=== PATIENT | male | born 1995 | race Caucasian/White ===

== ENCOUNTER 2016-08-09 09:36 | Inpatient (IN) | payer OTHER ==
--- NOTE | ~2016-08-09 | US140 ---
[facility]. [facility] A Service of [facility] RADIOLOGY TEXT RESULTS PATIENT: DMITRI FALLON LOCATION: SEDOF : 95 UNIT #: [id number] AGE: [address]: ULISES BAUTISTA MD SEX: M ORDER DR: [id number] [place] [id number] I MR#: [id number] Acc #: [id number] NAME: DMITRI FALLON. : 1995 SEX: M STUDY DATE/TIME: 08/09/2016 10:28 UNIT: SEDOF ROOM: [facility] STUDY DESCRIPTION: US UE Veins Unilat or Ltd Stdy Attending Physician: Ulises Bautista M.D. Ordering Physician: Drew Caba M.D. Primary Care Physician: [facility], MEDICAL IMAGING REPORT This report is preliminary unless electronic signature is present. EXAM Left upper extremity duplex venous ultrasound INDICATIONS 21-year-old male with severe left arm swelling, warmth and redness for 1 week in the region of the left elbow. The patient has a history of IV drug abuse. TECHNIQUE Tobias-scale, color Doppler and spectral Doppler waveform imaging of the deep venous structures in the left upper extremity was performed. No comparisons. FINDINGS The study demonstrates no evidence of DVT. There is no evidence of deep venous thrombosis. There is thrombus noted within the basilic vein in the distal upper arm most suggestive of superficial thrombophlebitis. Additionally, the line supply notes a fluid collection in the left lateral elbow region and posterior elbow region. This fluid is anechoic. There is a echogenic collection in the medial left elbow. It measures about 7 x 3 cm. This collection is indeterminate. It may represent abscess, given the clinical history, or possibly a hematoma. Correlate clinically. IMPRESSION 1. The study is negative for deep venous thrombosis. 2. There is superficial venous thrombosis involving the basilic vein in the distal upper arm most consistent with superficial thrombophlebitis. 3. There is a echogenic collection in the medial left elbow region measuring 7 x 3 cm. This may be abscess, given the patient's history, or possibly hematoma. Correlate clinically. 4. There is some anechoic fluid in the posterior medial elbow region. STS. [facility] A Service of [facility] RADIOLOGY TEXT RESULTS PATIENT: DMITRI FALLON LOCATION: SEDOF [id number] : [birth year] UNIT #: [id number] AGE: [address]: ULISES BAUTISTA MD SEX: M ORDER DR: Dictated by... Ton Samuel M.D. THIS IS AN ELECTRONICALLY VERIFIED REPORT Ton Samuel M.D. at 08/10/2016 7:41 AM BLANQUITA/arnol TD: 08/09/2016 17:25 JOB #: [id number] MEDICAL IMAGING REPORT
--- NOTE | ~2016-08-09 | CR93 ---
[facility] A Service of [facility] RADIOLOGY TEXT RESULTS PATIENT: DMITRI FALLON LOCATION: SEDOF [id number] : [birth year] UNIT #: [id number] AGE: [address]: ULISES BAUTISTA MD SEX: M ORDER DR: [id number] [place] [id number] MR#: [id number] Acc #: [id number] NAME: DMITRI FALLON. : 1995 SEX: M STUDY DATE/TIME: 08/09/2016 11:43 UNIT: SEDOF ROOM: [facility] STUDY DESCRIPTION: CR Elbow Min 3 Views Lt Attending Physician: Ulises Bautista M.D. Ordering Physician: Drew Cbaa M.D. [facility] REPORT This report is preliminary unless electronic signature is present. EXAM Left elbow, 08/09/2016 INDICATIONS 21-year-old male with swelling and pain from the elbow to the hand for a week. Drug use, possible retained needle. TECHNIQUE 3 views of the left elbow. No comparisons. FINDINGS No acute fracture, no retained opaque foreign body. There is nonspecific, diffuse soft tissue swelling. This may reflect generalized edema or cellulitis. No distinct subcutaneous air or periosteal reaction identified. IMPRESSION 1. No retained opaque foreign body or acute fracture. Nonspecific soft tissue swelling, which may reflect cellulitis. Dictated by... Asim Hare M.D. THIS IS AN ELECTRONICALLY VERIFIED REPORT Asim Hare M.D. at 08/10/2016 7:29 AM BRENT/arnol TD: 08/09/2016 18:09 JOB #: [id number] MEDICAL IMAGING REPORT
[~2016-08-09 09:36] MED LIST: LEVEMIR100 UNITS/ SUBQ; NO MEDICATIONS; NOVOLOG100 U/ML; PENICILLIN; PENICILLIN PO; TYLENOL #3 PO
[2016-08-09 10:50] LABS: BASOPHIL% 0.1 % (0-2.5); EOSINOPHIL% 0.4 % (0.0-7.0); HEMATOCRIT 25.7 % (38.0-50.0); HEMOGLOBIN 8.1 gm/dL (13.0-16.0); LYMPHOCYTE# 1.1 X10e3 (1.0-3.5); LYMPHOCYTE% 8.6 % (17.0-45.0); MEAN CELL VOLUME 104.1 FL (83-96); MEAN CORPUSCULAR HEMOGLOBIN 32.9 PG (28-34); MEAN CORPUSCULAR HGB CONC 31.6 g/dL (30-36); MEAN PLATELET VOLUME 7.1 FL (6.5-11.5); MONOCYTE# 1.1 X10e3 (0-1.0); NEUTROPHIL% 82.9 % (40-75); PLATELET COUNT 324 X10e3 (140-420); RED BLOOD COUNT 2.47 X10e (3.90-5.60); WHITE BLOOD COUNT 13.3 X10e3 (4.0-10.5)
[2016-08-09 10:52] LABS: DIFF IND NO
[2016-08-09 10:56] LABS: AMPHETAMINE POS (NEG); BARBITURATES NEG (NEG); BENZODIAZEPINES NEG (NEG); COCAINE NEG (NEG); MARIJUANA NEG (NEG); OPIATES POS (NEG); TRICYCLIC ANTIDEPRESSANTS NEG (NEG); U METHADONE NEG (NEG)
[2016-08-09 11:32] LABS: ALBUMIN SERUM 2.2 g/dL (3.5-5.0); ALKALINE PHOSPHATASE 527 U/L (32-92); ALT (SGPT) 337 U/L (10-40); AST (SGOT) 427 U/L (10-42); BILIRUBIN, DIRECT 0.3 mg/dL (0.0-0.2); BILIRUBIN,INDIRECT 0.5 mg/dL (0.0-0.9); BILIRUBIN,TOTAL 0.8 mg/dL (0.2-2.0); BLOOD UREA NITROGEN 12 mg/dL (9-23); BUN/CREATININE RATIO 17.14; CALCIUM SERUM 8.1 mg/dL (8.4-10.2); CARBON DIOXIDE 29 mmol/L (22-31); CHLORIDE 98 mmol/L (100-111); CREATININE SERUM 0.7 mg/dL (0.6-1.4); GLOM FILT RATE Estimated ABOVE60 mL/min (>60); POTASSIUM 4.1 mmol/L (3.5-5.1); SODIUM 135 mmol/L (135-145)
[2016-08-09 11:33] LABS: GLUCOSE FASTING 768 mg/dL (70-110)
[2016-08-09 11:54] LABS: URINE SOURCE CLEAN CATCH
[2016-08-09 11:58] LABS: URINE APPEARANCE CLEAR; URINE BILIRUBIN NEG (NEG); URINE BLOOD NEG (NEG); URINE COLOR YELLOW; URINE GLUCOSE 300 MG/DL (NORM); URINE KETONE NEG (NEG); URINE LEUKOCYTE ESTERASE NEG (NEG); URINE NITRATE NEG (NEG); URINE PROTEIN NEG (NEG); URINE SPECIFIC GRAVITY <=1.005 (1.003-1.035); URINE UROBILINOGEN 0.2 MG/DL (NORM)
[2016-08-09 11:59] LABS: MICRO INDICATED? NO
[2016-08-09] MEDS ORDERED: HUMALOG100 U/ML SUBQ (15:45)
[2016-08-09] MEDS ORDERED: LEVEMIR100 UNITS/ SUBQ (15:45)
[2016-08-17] MEDS ORDERED: DOXYCYCLINE HY100 M3 PO (10:25)
[2016-08-17] MEDS ORDERED: LORTAB 5-325 M1 EACH PO (10:26)
== END 2016-08-17 10:53 | disposition home or self-care (01) | DRG 579 ==
LOC: SED 09:36 → C2A 20:20
PROVIDERS: Emergency Medicine
PROC: 05HM33Z Insertion of Infusion Device into Right Internal Jugular Vein, Percutaneous Approach (ICD-10-PCS; 2016-08-09)
PROC: B543ZZA Ultrasonography of Right Jugular Veins, Guidance (ICD-10-PCS; 2016-08-09)
PROC: 0RBM0ZZ Excision of Left Elbow Joint, Open Approach (ICD-10-PCS; principal; 2016-08-10)
PROC: 30243N1 Transfusion of Nonautologous Red Blood Cells into Central Vein, Percutaneous Approach (ICD-10-PCS; 2016-08-13)
PROC: 0J9H0ZZ Drainage of Left Lower Arm Subcutaneous Tissue and Fascia, Open Approach (ICD-10-PCS; 2016-08-15)
PROC: 0K9B0ZZ Drainage of Left Lower Arm and Wrist Muscle, Open Approach (ICD-10-PCS; 2016-08-15)
PROC: 0R9M3ZX Drainage of Left Elbow Joint, Percutaneous Approach, Diagnostic (ICD-10-PCS; 2016-08-15)
DX: L02.414 Cutaneous abscess of left upper limb (principal); E43 Unspecified severe protein-calorie malnutrition; E10.10 Type 1 diabetes mellitus with ketoacidosis without coma; M60.001 Infective myositis, unspecified left arm; E10.649 Type 1 diabetes mellitus with hypoglycemia without coma; F11.20 Opioid dependence, uncomplicated; I80.8 Phlebitis and thrombophlebitis of other sites; F33.9 Major depressive disorder, recurrent, unspecified; F15.20 Other stimulant dependence, uncomplicated; Z68.1 Body mass index [BMI] 19.9 or less, adult; B96.1 Klebsiella pneumoniae [K. pneumoniae] as the cause of diseases classified elsewhere; Z79.4 Long term (current) use of insulin; E87.6 Hypokalemia; R94.5 Abnormal results of liver function studies; F17.290 Nicotine dependence, other tobacco product, uncomplicated; D50.9 Iron deficiency anemia, unspecified; Z91.14 Patient's other noncompliance with medication regimen; M25.422 Effusion, left elbow
CPT/HCPCS: 71010; 73080; 73221; 80048; 80053; 80076; 80307; 81003; 82010; 82274; 82947; 83605; 83735; 84132; 85025; 85027; 86850; 86900; 86901; 86923; 87040; 87070; 87075; 87077; 87186; 87205; 89051; 90471; 90715; 93306; 93971; 96361; 96365; 96375; 99291; J0131; J0692; J1170; J1815; J1956; J2250; J2270; J2370; J2405; J2543; J3010; J3370; J3475; J3480; P9016